=== PATIENT | female | born 1960 | race Caucasian/White ===

== ENCOUNTER 2024-10-18 11:36 | Emergency (ER) | payer OTHER, SELFPAY ==
[2024-10-18 11:44] VITALS: BP 111/68
--- NOTE | 2024-10-18 12:24 | ED.GENMED ---
History of Present Illness
General
Chief Complaint: Weakness
Source: patient
Exam Limitations: none
Time Seen by Provider: 10/18/24 12:17
Nursing documentation reviewed up to this point in time: agreed with
History of Present Illness
History of Present Illness:
64-year-old female with a history of diabetes and hypertension presenting for primary complaint of muscle aches and weakness
Seems like she started with some generalized mild neck discomfort about 2 or 3 weeks ago, she just noticed that it felt like her neck was cracking at times and that it was sore. She never had significant neck pain. She never had a headache.
Within the last week it seems like symptoms of muscle aches and weakness have progressed. She started feeling achiness in her joints and her muscles. Primarily in her upper extremities and in her knees or thighs. Within the last 3 days she has
noticed that she has become more weak, it is more difficult for her to do her normal activities. 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 She described it
really as being more pain than weakness. Sounds like the weakness got significantly worse in the last 24 hours. She worked a shift 3-11 last night and then slept. When she woke up her noticed that she was having a harder time getting
around. She feels like she has some degree of discomfort in her knees but also that she cannot lift her legs properly like normal and walk up the stairs. He said he noticed her taking 1 step at a time and putting both feet on the step before
moving on. This is very unusual for her. She has not noticed any fever symptoms, rash, headache, inability to move her neck, swelling or skin changes to her arms or legs. She has no numbness in her body. Patient really having trouble swallowing
though she said her teeth were sore yesterday. She is not having any facial droop or ptosis of her eyelids, speech issues, vision changes, dizziness. Patient does recall that she pulled a tick from her skin sometime around April or May and
she was unclear of how long it had been in her skin. She had to take out the tick from her right thigh region. She did not see a rash following that. She never got seen by a primary care doctor and never received antibiotics or Lyme testing.
Patient has never had any issues with her neck or back before.
There has been no recent cough or cold symptoms or viral infection symptoms. She does feel like maybe some of her weakness is worse in the morning when she first gets up.
For her alert her sugar of 200 is a little high
Patient was found to have a borderline temperature of 100 by me.
Past History
Past History
ED Past Medical History: HTN and NIDDM
ED Past Surgical History: Gynecological (Hysterctomy)
Social History
Tobacco: Non-smoker
Alcohol: Occasional
Personal:
Living: with family
Review of Systems
Review of Systems
Allergies reviewed?: Yes
All Other Systems: Not applicable
Phy Exam
Physical Exam
Physical Exam:
GENERAL: Alert , in no apparent distress
HEAD: NCAT
EYE: pupils equal and reactive, no nystagmus, no photophobia
NECK: Supple,full rom, nontender
full ROM
ENT: o/p clr, mmm.
CARDIAC: Regular rate and rhythm . no edema
LUNGS: Clear breath sounds bilaterally, no acute respiratory distress, no wheezes/rales/rhonchi
ABDOMEN: Soft, without focal tenderness, no r/g, no cvat
NEUROLOGICAL: Alert and orientedx 4, cn intact, no facial asymmetry, weakness appreciated proximal muscles UE and LE though worse in UE abduction and adduction than pelvic girdle
normal sensation
2-3+ reflexes brachial, patellar
no ptosis of eyelids
normal swallow
SKIN: Warm and dry, skin intact.
MUSCULOSKELETAL: No edema, well perfused.
PSYCH: Normal and appropriate interaction.
Course
Orders/Labs/Results
Orders:
Orders
10/18/24 12:44
Electrocardiogram (*1) Stat
Reason for Study: Other
Other Reason for Exam: neuro symptoms
Cardiac Monitoring- Treatment ONCE
EKG- Treatment ONCE
10/18/24 12:59
COVID-19 Antigen Urgent
Source: Nasal Swab
Complete Blood Count/With Diff Urgent
Erythrocyte Sed Rate Urgent
PTT Urgent
Prothrombin Time Urgent
Blood Culture Q30M
FRANCY Source: Blood/Venous
Specimen Description:
Blood Culture Q30M
FRANCY Source: Blood/Venous
Specimen Description:
Influenza A+B Rapid Molecular Urgent
FRANCY Source: Nasal Swab
Specimen Description:
10/18/24 13:37
MR Cervical Spine Without Urgent
Comment:
Reason For Exam: neck pain, wekaness UE>LE
Recent pill cam endoscopy?: No
10/18/24 15:07
C-Reactive Protein Urgent
Comprehensive Metabolic Panel Urgent
Creatine Phosphokinase Urgent
Lyme Progressive Urgent
Vitamin B12 Urgent
10/18/24 15:27
0.9% Sodium Chloride 1000 ml [Nss] 1,000 ml IV BOLUS
10/18/24 18:41
Dexamethasone Sod Phosphate [Decadron] 10 mg IV NOW STA
Abnormal Lab Results
10/18/24 10/18/24
12:59 15:07
MPV 10.8 H fL
(7.4-10.4)
Absolute Lymphs (auto) 0.7 L 10^3/uL
(1.2-3.4)
Neutrophils % 80.6 H %
(42.2-75.2)
Lymphocytes % 11.8 L %
(20.5-51.1)
Carbon Dioxide 20 L mmol/L
(22-30)
Creatinine 0.5 L mg/dL
(0.6-1.0)
Glucose 143 H mg/dl
(70-99)
ALT 37 H U/L
(0-35)
C-Reactive Protein 26.60 H mg/L
(0.0-10.00)
Vitamin B12 > 1000 H pg/ml
(239-931)
10/18/24 12:59
10/18/24 15:07
Vital Signs
Temp: 37.8 C
Initial and Last Documented VS:
Initial Vital Signs
Temp Pulse Resp BP Pulse Ox
37.4 C 73 18 111/68 98
10/18/24 11:44 10/18/24 11:44 10/18/24 11:44 10/18/24 11:44 10/18/24 11:44
Last Documented Vital Signs
Temp Pulse Resp BP Pulse Ox
37.0 C 87 19 115/69 96
10/18/24 15:26 10/18/24 18:45 10/18/24 18:45 10/18/24 18:41 10/18/24 15:45
MDM/Problems Addressed
Differential Diagnosis Includes:
myelopathy, cervical cord compression, PMR, guillain barre, lyme disease
MDM/Problems Addressed:
64 y/o F
h/o htn, DM
3 weeks of very vague minimal neck discomfort
then started noticing she was havin gsome stiffness in her joitns, worse in the shoulders and hips and having muscle aches
no joint swelling
symmetric
no fever
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
within the past 24 hours she has also had some issues wlaking up the steps, having to take 1 step at a time; this is very unusual
she has discomfort with this weakness, like an achiness in her muscles
the neck pain is no worse
she is able ot move her neck
no dizziness, headache, numbness/tingling, known fever, urinary incontinence, foot drop
no h/o alcoholism
no IVDA
on arrival she had borderline temp 100
but never annalee higher
on exam she is fully able to range neck
she has esnesation intact
2-3+ reflexes b/l
but she is having some proximal muscle weakness b/l UE L>R and seems to be minimally weak in her hips b/l prox LE; no distal extremity weakness
i spok both with ER gifty and neurology attending regarding this patient
dr. Arredondo from neuro examined her at bedside, appreciated her weakness
recommended CT of her cervical spine; he did perform an osteopathic treatment to her cerival spine and both the patient and the neurologist aprpeicated that she is stronger
he did not feel she needed contrast
pt's MRI results showed severe neuroforaminal narrowing on the R and the L but no cord compression or signal issues
again she was reassessed and seemed stronger than previous, was able to walk easier
she still has some achiness
i discussed with neurology whether steroids would help her but he did not feel this would be beneficial ; however will give her 1 dose of decadron and continue NSAIDs at home
ortho spine/neurosurgery recommended f/u
as well as PCP
i actually spoke with the suction plate carrier cleaner PCP for epatient who will make sure she is promptly followed up
copy of her MRI given
lyme pending
note CPK normal
CRP was elevated
and she does have incidental lymph nodse in her cervical spine
she will need these f/u as well
*Critical Care Note
Total Time (30-74mins, 75-104mins- exclusive of procedures): Not Applicable
ED Attending Note
-
Portions of this chart may have been created with voice recognition software.� Occasional wrong word or��sound alike� substitutions may have occurred due to the inherent limitations of voice recognition software.
Discharge Plan
Departure
Patient Disposition: Home (Routine Discharge)
Date of Disposition: 10/18/24
Time of Disposition: 18:48
Patient with high blood pressure during this ER visit?: No
Condition: Fair
Discharge Problem:
Cervical disc disease
Instructions: Degenerative Disc Disease ED, Neck pain - ED discharge instructions
Prescriptions:
No Action
cyanocobalamin (vitamin B-12) 1,000 MCG tablet extended release
1,000 mcg PO DAILY
lisinopril-hydrochlorothiazide 1 EACH tablet
1 ea PO DAILY
Patient Comments:
20mg/12.5mg
glimepiride 2 MG tablet
2 mg PO DAILY
sertraline 50 MG tablet
50 mg PO DAILY
diazepam 5 MG tablet
5 mg PO HS
qxbyqzod-iru-AE-lycopen-lutein [Centrum Silver] 1 EACH tablet
1 ea PO DAILY
cholecalciferol (vitamin D3) 2,000 UNITS tablet
2,000 unit PO DAILY
Cinnamon 1,000 MG Capsule
1,000 mg PO DAILY
Iron 65 MG Tab
65 mg PO DAILY
Onglyza 5 MG Tab
5 mg PO QPM
ibuprofen 600 MG tablet
600 mg PO Q4HPRN PRN (Reason: mild pain) Qty: 30 0RF
simethicone [Gas Relief 80 (simethicone)] 80 MG tablet,chewable
80 mg PO Q6HPRN PRN (Reason: gas distention) Qty: 30 0RF
oxycodone 5 MG tablet
5 mg PO Q4HPRN PRN (Reason: moderate pain) Qty: 18 0RF
oxycodone 10 MG tablet
10 mg PO Q4HPRN PRN (Reason: severe pain when tolerating PO) Qty: 0 0RF
Referrals:
Anna Torres DO [Family Provider] - Follow up in 2-3 days
Magy Kaur MD [Active] - Follow up in 5-7 days (neurosurgery (spine))
Activity Restrictions/Additional Instructions:
Your cervical spine MRI showed severe neuroforaminal narrowing on the right side at C5-6 level and severe left-sided neuroforaminal narrowing at C6/C7
But you had a normal appearance of your spinal cord. You did have prominent lymph nodes on the right side of your neck which could be nonspecific. It is important that you have a family doctor follow you up this week. Please call for an
appointment. You also need outpatient EMG testing which will test the nerve pathway to your extremities. This was recommended by the neurologist.
you were tested for Lyme disease, this did not come back today, we will call you if it is positive
Return for worsening weakness, fever, severe headache or neck pain, neck stiffness, numbness to your arms or legs, trouble swallowing, trouble with eyelid drooping, worsening trouble walking or any concerns.
take motrin every 8 hours with food for pain foe 3-5 days
tylenol every 6 hours as needed for pain
you were given a dose of steroids to help hopefully
Interventions
Interventions:
*Risk Screen - Suicide Last Done: 10/18/24 11:44
*General Assessment Last Done: 10/18/24 11:44
*Neglect/Abuse Screening Last Done: 10/18/24 11:44
*ED- Fall Risk Assessment Last Done: 10/18/24 13:00
*ED COVID-19 Vaccine History Last Done: 10/18/24 13:00
*Nursing Disposition Last Done: 10/18/24 19:30
ED- Cardiac Assessment Last Done: 10/18/24 13:00
ED- Neurological Assessment Last Done: 10/18/24 13:00
ED- Pulmonary Assessment Last Done: 10/18/24 13:00
Discharge Date and Time
Discharge Date/Time: 10/18/24 19:30
Print Language: OCCITAN
[2024-10-18 13:29] LABS: % Basophils 0.8 % (0-2); % Eosinophils 0.8 % (0-6); % Immature Granulocytes 0.2 % (0-0.5); % Lymphocytes 11.8 % (20.5-51.1); % Monocytes 5.8 % (1.7-9.3); % Neutrophils 80.6 % (42.2-75.2); Absolute Basophils 0.1 10^3/uL (0-0.2); Absolute Eosinophils 0.1 10^3/uL (0-0.7); Absolute Lymphocytes 0.7 10^3/uL (1.2-3.4); Absolute Monocytes 0.4 10^3/uL (0.1-0.6); Absolute Neutrophils 4.9 10^3/uL (1.4-6.5); Hematocrit 40.3 % (37.0-47.0); Hemoglobin 14.2 g/dL (12.0-16.0); Mean Corp Hgb Conc. 35.2 g/dL (33.0-37.0); Mean Corpuscular Hgb 30.1 pg (27.0-31.0); Mean Corpuscular Volume 85.4 fL (81.0-99.0); Mean Platelet Volume 10.8 fL (7.4-10.4); Nucleated Red Blood Cells % 0 %; Platelet Count 152 10^3/uL (130-400); Red Blood Cell Count 4.72 10^6/uL (4.20-5.40); Red Cell Dist. Width 13.6 % (11.5-14.5)
[2024-10-18 13:39] LABS: PT 13.5 Sec (11.4-14.6)
[2024-10-18 13:40] LABS: APTT 23.6 Sec (23.4-35.0)
--- NOTE | 2024-10-18 13:41 | CON.NEURO ---
Addendum entered and electronically signed by Inderjit Arredondo MD 10/18/24 16:38:
I reviewed cervical spine MRI, no cord compression, there is severe left C6/C7 NF narrowing, and severe right C5-C6 NF narrowing
I reassessed the patient and the left triceps and forearm extensors are weaker so this could be symptomatic left C7 radic;
the right right C5-C6 does not appear symptomatic, and her right hand paresthesias on exam are more consistent with carpal tunnel
she was able to swallow coffee through a straw, and has no recent falls, I don't see a role for emergent neurosurgical intervention
patient can discharge home
would refer to Dr Aydin Srinivasan consult+EMG, try conservative management with PT, gabapentin, and then consider outpatient neurosurgical evaluation for decompression after EMG
Original Note:
Neuro Assessment/Plan
Assessment
presenting with acute weakness
Cervical myelopathy, compressive
I performed OMT cervical mobilization, sub occipital release, and afterwards patient's strength in the left side improved, suggesting compressive etiology
Plan
MRI cervical spine
PT/OT/Speech eval
Consultation
Order
Date of Consultation: 10/18/24
Requesting Provider: Jovita Haynes
Reason for Consult: weakness
Subjective/Objective
Subjective Data
Date of Service: October 18, 2024
from ED notes:
64-year-old female with a history of diabetes and hypertension presenting for primary complaint of muscle aches and weakness
Seems like she started with some generalized mild neck discomfort about 2 or 3 weeks ago, she just noticed that it felt like her neck was cracking at times and that it was sore. She never had significant neck pain. She never had a headache.
Within the last week it seems like symptoms of muscle aches and weakness have progressed. She started feeling achiness in her joints and her muscles. Primarily in her upper extremities and in her knees or thighs. Within the last 3 days she has
noticed that she has become more weak, it is more difficult for her to do her normal activities. 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 She described it
really as being more pain than weakness. Sounds like the weakness got significantly worse in the last 24 hours. She worked a shift 3-11 last night and then slept. When she woke up her noticed that she was having a harder time getting
around.
+dysphagia, no dysarthria, no facial droop,
Objective Data
Vital Signs
Temp Pulse Resp BP Pulse Ox
37.8 C 73 18 111/68 98
10/18/24 13:14 10/18/24 11:44 10/18/24 11:44 10/18/24 11:44 10/18/24 11:44
Lab Results
10/18/24 12:59
Patient Allergies
latex Allergy (Verified 10/18/24 11:44)
Itching
cephalexin monohydrate [From Keflex] Adverse Reaction (Mild, Verified 10/18/24 11:44)
Nausea
Physical Exam
-
AAOx3, speech clear, language intact
VFF, EOMI, face symmetric
RUE/LE 5-/5, LUE/LE 4/5, slightly increased tone
sensation intact to touch/temp, mild vibratory loss in both knees and fingers
DTR 3+ upper, 2+ knees symmetric
Medications
-
Home Medications
�Medication �Instructions �Recorded
Cinnamon 1,000 mg PO DAILY 03/26/17
Iron 65 mg PO DAILY 03/26/17
Onglyza 5 mg PO QPM 03/26/17
cholecalciferol (vitamin D3) 50 2,000 unit PO DAILY 03/26/17
mcg (2,000 unit) tablet
cyanocobalamin (vitamin B-12) 1,000 mcg PO DAILY 03/26/17
1,000 mcg tablet,extended release
diazepam 5 mg tablet 5 mg PO HS restelss leg 03/26/17
glimepiride 2 mg tablet 2 mg PO DAILY 03/26/17
lisinopril 20 1 ea PO DAILY 03/26/17
mg-hydrochlorothiazide 12.5 mg
tablet
wmelnxwc-asr-jepma acid 0.4 1 ea PO DAILY 03/26/17
mg-lycopene 300 mcg-lutein 250 mcg
tablet (Centrum Silver)
sertraline 50 mg tablet 50 mg PO DAILY 03/26/17
ibuprofen 600 mg tablet 600 mg PO Q4HPRN PRN mild pain #30 04/07/17
tabs
oxycodone 10 mg tablet 10 mg PO Q4HPRN PRN severe pain 04/07/17
when tolerating PO ##0
oxycodone 5 mg tablet 5 mg PO Q4HPRN PRN moderate pain 04/07/17
##18
simethicone 80 mg chewable tablet 80 mg PO Q6HPRN PRN gas distention 04/07/17
(Gas Relief 80 (simethicone)) ##30
[2024-10-18 13:48] LABS: COVID-19 Antigen Negative (Negative)
[2024-10-18 15:05] VITALS: BP 95/63
[2024-10-18 15:10] LABS: Erythrocyte Sed Rate 7 mm/hour (0-20)
[2024-10-18 15:12] VITALS: BMI 32.2
[2024-10-18] MEDS: NSS 1000 IV (15:27)
[2024-10-18 15:28] LABS: ALT (SGPT) 37 U/L (0-35); AST (SGOT) 29 U/L (14-36); Albumin 3.9 g/dl (3.5-5.0); Alkaline Phosphatase 80 U/L (38-126); Blood Urea Nitrogen 14 mg/dl (7-17); Calcium 9.6 mg/dl (8.4-10.2); Carbon Dioxide 20 mmol/L (22-30); Chloride 105 mmol/L (98-107); Creatine Phosphokinase 55 U/L (30-135); Estimated Creatinine Clearance 88 ml/min; Glucose 143 mg/dl (70-99); Potassium 3.7 mmol/L (3.5-5.1); Sodium 135 mmol/L (135-145); Total Bilirubin 0.8 mg/dl (0.2-1.3); Total Protein 6.4 g/dl (6.3-8.2); eGFR > 60.00
[2024-10-18 17:50] LABS: Vitamin B12 > 1000 pg/ml (239-931)
[2024-10-18 18:41] VITALS: BP 115/69
[2024-10-18] MEDS: DECADRON 10 MG IV (18:55)
[2024-10-20 14:12] LABS: Lyme Antibody Screen, EIA Negative (Negative)
== END 2024-10-18 19:30 | disposition home or self-care (01) ==
LOC: EMR 11:36
PROVIDERS: Physician Assistant; EMERGENCY PHYSICIAN Emergency Medicine; FAMILY PHYSICIAN Family Medicine; OTHER PHYSICIAN Psychiatry & Neurology Clinical Neurophysiology
DX: M50.920 Unspecified cervical disc disorder, mid-cervical region, unspecified level (principal); I10 Essential (primary) hypertension; E11.9 Type 2 diabetes mellitus without complications; Z11.52 Encounter for screening for COVID-19; Z79.84 Long term (current) use of oral hypoglycemic drugs; Z91.040 Latex allergy status; Z88.1 Allergy status to other antibiotic agents
CPT/HCPCS: 96374; 96361; 99284; 72141; 80053; 82550; 82607; 85025; 85610; 85652; 85730; 86140; 86618; 87040; 87502; 87811; 93005